=== PATIENT | female | born 1955 | race Caucasian/White ===

== ENCOUNTER 2016-10-09 07:24 | Day surgery (SDC) | payer BC ==
[2016-10-09] MEDS ORDERED: Propofol 200 MG/20 ML SDV ONE (07:46)
[2016-10-09] MEDS ORDERED: Midazolam 1 MG/ML 2 ML SDV ONE (07:46)
[2016-10-09] MEDS ORDERED: fentaNYL 100 MCG/2 ML SDV ONE (07:46)
[2016-10-09] MEDS ORDERED: Sodium Chloride 0.9% 1,000 ML IV SCH (08:00)
[2016-10-09 10:55] VITALS: BP 169/85
--- NOTE | 2016-10-09 12:22 | OR ---
DATE OF PROCEDURE: 10/09/2016 PROCEDURE: Colonoscopy. FINDINGS: Cecal polyp, 5 mm, completely removed using cold biopsy forceps. COMPLICATIONS: None. STUD B[employer]F [employer]ER: None. ANESTHESIA: MAC. PREOPERATIVE DIAGNOSIS: Screening colonoscopy. POSTOPERATIVE DIAGNOSIS: Screening colonoscopy. RISKS: Risks, benefits, alternatives, and limitations, including, but not limited to infection, bleeding, perforation were explained to the patient and wished to proceed. PROCEDURE IN DETAIL: The patient was placed in left lateral decubitus position. Digital rectal exam was performed without abnormality. The scope was introduced and advanced atraumatically to the ileocecal valve. The scope was brought back to the ascending, transverse, descending colon, and retroflexed. Aside from the cecal polyp, there were no other abnormalities. The patient tolerated the procedure well. Kevon Hubbard MD /[id number]
== END 2016-10-09 10:45 | disposition home or self-care (01) ==
LOC: JP.SDS 07:24
PROVIDERS: ATTEND Surgery
DX: Z12.11 Encounter for screening for malignant neoplasm of colon (principal); D12.0 Benign neoplasm of cecum; I10 Essential (primary) hypertension; E78.5 Hyperlipidemia, unspecified; E66.9 Obesity, unspecified; G62.9 Polyneuropathy, unspecified; Z79.899 Other long term (current) drug therapy; Z88.8 Allergy status to other drugs, medicaments and biological substances
CPT/HCPCS: 45380; 88305; J2250; J2704; J3010; J7040

== ENCOUNTER 2021-06-18 06:25 | Day surgery (SDC) | payer MEDICARE ==
[2021-06-18] MEDS ORDERED: Sodium Chloride 0.9% 1,000 ML IV SCH (07:00)
[2021-06-18] MEDS ORDERED: fentaNYL 100 MCG/2 ML SDV ONE (07:03)
[2021-06-18] MEDS ORDERED: Propofol 200 MG/20 ML SDV ONE (07:04)
[2021-06-18] MEDS ORDERED: Midazolam 1 MG/ML 2 ML SDV ONE (07:04)
[2021-06-18 09:11] VITALS: BP 137/72; PULSE 47
--- NOTE | 2021-06-18 10:51 | OR ---
DATE OF PROCEDURE: 06/18/2021 SURGEON: Kevon Hubbard MD PROCEDURE: Colonoscopy. FINDINGS: Sigmoid colon polyp, approximately 8 mm, completely removed using hot snare wire device. COMPLICATIONS: None. PROFESSOR OF THEATRE: None. ANESTHESIA: MAC. PREOPERATIVE DIAGNOSIS: Screening colonoscopy. POSTOPERATIVE DIAGNOSIS: Screening colonoscopy. RISKS: Risks, benefits, alternatives, and limitations including, but not limited to, infection, bleeding, perforation, false positives, false negatives were explained to the patient and wished to proceed. PROCEDURE IN DETAIL: The patient was placed in left lateral decubitus position. Digital rectal exam was performed without abnormality. Scope was introduced and advanced atraumatically to the ileocecal valve. The scope was brought back to the ascending, transverse, descending colon and retroflexed. No evidence of old or new blood. No masses. The aforementioned polyp was identified and completely removed. No abnormalities on retroflexion. Greater than 8 minutes was spent removing the scope. Prep was acceptable, approximately 90% luminal surface could be seen. The patient tolerated the procedure well. Kevon Hubbard MD /[id number]
== END 2021-06-18 09:24 | disposition home or self-care (01) ==
LOC: JP.SDS 06:25
PROVIDERS: ATTEND Surgery
DX: Z12.11 Encounter for screening for malignant neoplasm of colon (principal); D12.5 Benign neoplasm of sigmoid colon; I10 Essential (primary) hypertension; E78.5 Hyperlipidemia, unspecified
CPT/HCPCS: J2250; J2704; J3010; J7030

== ENCOUNTER 2022-08-22 11:31 | Emergency (ER) | payer MEDICARE ==
[2022-08-22 11:41] VITALS: BP 178/71; PULSE 57
== END 2022-08-22 12:32 | disposition home or self-care (01) ==
LOC: JP.ED 11:31
DX: R20.2 Paresthesia of skin (principal); I10 Essential (primary) hypertension; M19.90 Unspecified osteoarthritis, unspecified site; E66.9 Obesity, unspecified; Z68.32 Body mass index [BMI] 32.0-32.9, adult; Z88.5 Allergy status to narcotic agent; Z91.048 Other nonmedicinal substance allergy status; Z88.8 Allergy status to other drugs, medicaments and biological substances; Z79.82 Long term (current) use of aspirin; Z79.899 Other long term (current) drug therapy
CPT/HCPCS: 70450; 70450-26; 99282; 99284

== ENCOUNTER 2024-01-21 08:22 | Day surgery (SDC) | payer MEDICARE ==
[2024-01-21] MEDS: Sodium Chloride 0.9% 1,000 ML IV SCH (09:12)
[2024-01-21] MEDS ORDERED: fentaNYL 50 MCG/ML SDV ONE (09:29)
[2024-01-21] MEDS ORDERED: Propofol 200 MG/20 ML SDV ONE (09:29)
[2024-01-21] MEDS ORDERED: Midazolam 1 MG/ML 2 ML SDV ONE (09:29)
[2024-01-21 11:42] VITALS: BP 107/57; PULSE 68
== END 2024-01-21 11:59 | disposition home or self-care (01) ==
LOC: JP.SDS 08:22
PROVIDERS: ATTEND Surgery
DX: Z12.11 Encounter for screening for malignant neoplasm of colon (principal); K57.30 Diverticulosis of large intestine without perforation or abscess without bleeding; I10 Essential (primary) hypertension
CPT/HCPCS: 00812-QZ; J2250; J2704; J3010; J7030